=== PATIENT | female | born 1980 | race Hispanic/Latino ===

== ENCOUNTER 2016-07-25 08:25 | Day surgery (SDC) | payer OTHER ==
[2016-07-25] MEDS ORDERED: Lactated Ringer's 500 ML IV ONE (09:28)
[2016-07-25] MEDS ORDERED: Propofol 10 mg/ml Inj (20 ML) ONE (11:04)
[2016-07-25 11:45] VITALS: TEMP 97
[2016-07-25 11:57] VITALS: BP 120/80; PULSE 70; RESP 15; O2SAT 100
== END 2016-07-25 12:13 | disposition home or self-care (01) ==
LOC: H.ENDO 08:25
PROVIDERS: ATTEND Internal Medicine Gastroenterology
DX: R19.4 Change in bowel habit (principal); K64.8 Other hemorrhoids; K30 Functional dyspepsia; K44.9 Diaphragmatic hernia without obstruction or gangrene; K29.70 Gastritis, unspecified, without bleeding; K20.9 Esophagitis, unspecified; E66.9 Obesity, unspecified; I10 Essential (primary) hypertension